=== PATIENT | female | born 1955 | race Caucasian/White ===

== ENCOUNTER 2018-09-02 10:12 | Outpatient (CLI) | payer BC | END 2018-09-02 10:13 | disposition home or self-care (01) | LOC: BICMAMMO 10:12 | PROVIDERS: ATTEND Family Medicine | DX: Z12.31 Encounter for screening mammogram for malignant neoplasm of breast (principal); R92.1 Mammographic calcification found on diagnostic imaging of breast; Z80.3 Family history of malignant neoplasm of breast | CPT/HCPCS: 77063; 77067 ==

== ENCOUNTER 2019-06-18 13:08 | Outpatient (CLI) | payer MEDICARE, BC ==
[~2019-06-18 13:08] MED LIST: Iopamidol 370 76% 100 ML VIAL ONE
--- NOTE | 2019-06-18 14:58 | CT ---
CT ABDOMEN AND PELVIS PERFORMED WITH INTRAVENOUS CONTRAST ENHANCEMENT: 06/18/19 HISTORY: Abdominal pain and abnormal LFTs. COMPARISON: A 04/22/16 exam. The lung bases are clear. The liver and spleen show no focal abnormalities. Suggestion of perhaps some slight fatty change to t he liver. The pancreas and gallbladder regions are unremarkable. Right and left adrenal glands and right and left kidneys are normal in size. There is no significant periaortic or mesenteric adenopathy. CT OF PELVIS PERFORMED WITH CONTRAST ENHANCEMENT: Calcified uterine fibroid is noted. Some minimal sigmoid diverticulosis is seen. The appendix is not definitively identified but I see no abnormality in this region. IMPRESSION: 1. Slight fatty change to the liver which is within normal limits of size. 2. Minimal sigmoid diverticulosis. 3. Calcified uterine fibroid. POS: OFF
== END 2019-06-18 13:09 | disposition home or self-care (01) ==
LOC: SCSCT 13:08
PROVIDERS: ATTEND Physician Assistant Medical
DX: R10.9 Unspecified abdominal pain (principal); R94.5 Abnormal results of liver function studies; K76.0 Fatty (change of) liver, not elsewhere classified; K57.30 Diverticulosis of large intestine without perforation or abscess without bleeding; D25.9 Leiomyoma of uterus, unspecified
CPT/HCPCS: 74177; 82565

== ENCOUNTER 2020-10-25 11:05 | Outpatient (CLI) | payer MEDICARE, BC ==
--- NOTE | 2020-10-25 12:04 | MMO ---
Bilateral MAMMO Bilat Screen [facility]. CLINICAL HISTORY: Patient is 64 years old and is seen for screening. The patient has no personal history of cancer. VIEWS: The views performed were: bilateral craniocaudal with tomosynthesis and bilateral mediolateral oblique with tomosynthesis. FILMS COMPARED: The present examination has been compared to prior imaging studies performed at [facility] on 11/10/2014, 12/13/2015, 01/21/2017 and 09/02/2018. This study has been interpreted with the assistance of computer-aided detection. MAMMOGRAM FINDINGS: There are scattered fibroglandular densities. Finding 1: There are stable benign appearing calcifications seen in both breasts. Finding 2: There are stable benign appearing densities seen in both breasts. There are no suspicious masses, suspicious calcifications, or new areas of architectural distortion. IMPRESSION: THERE IS NO MAMMOGRAPHIC EVIDENCE OF MALIGNANCY. A ROUTINE FOLLOW-UP MAMMOGRAM IN 1 YEAR IS RECOMMENDED. THE RESULTS OF THIS EXAM WERE SENT TO THE PATIENT. ACR BI-RADS Category 2 - Benign finding MAMMOGRAPHY NOTE: 1. A negative mammogram report should not delay a biopsy if a dominant of clinically suspicious mass is present. 2. Approximately 10% to 15% of breast cancers are not detected by mammography. 3. Adenosis and dense breasts may obscure an underlying neoplasm. Reported by: MELLISSA WATTS MD Electonically Signed: [id number]
== END 2020-10-25 11:06 | disposition home or self-care (01) ==
LOC: BICMAMMO 11:05
PROVIDERS: ATTEND Family Medicine
DX: Z12.31 Encounter for screening mammogram for malignant neoplasm of breast (principal)
CPT/HCPCS: 77063; 77067

== ENCOUNTER 2024-04-01 11:38 | Outpatient (CLI) | payer MEDICARE, BC | END 2024-04-01 11:39 | disposition home or self-care (01) | LOC: RAD 11:38 | PROVIDERS: ATTEND Surgery | DX: I96 Gangrene, not elsewhere classified (principal) | CPT/HCPCS: 71046 ==